=== PATIENT | male | born 1955 | race Caucasian/White ===

== ENCOUNTER 2024-10-08 16:25 | Emergency (ER) | payer MEDICARE, SELFPAY ==
[2024-10-08 16:33] VITALS: BP 150/79
--- NOTE | 2024-10-08 18:04 | ED.GENMED ---
History of Present Illness
General
Chief Complaint: Skin Surface Trauma
Source: patient
Exam Limitations: none
Time Seen by Provider: 10/08/24 17:47
History of Present Illness
History of Present Illness:
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 States his tetanus shot is up-to-date. No other complaints. Minimal bleeding initially. Patient states his wanted him to get it fixed
Past History
Past History
ED Past Medical History: None
Phy Exam
Physical Exam
Physical Exam:
CONSTITUTIONAL Vital signs reviewed, Patient alert and oriented to person, place and time. Well-appearing
HEAD atraumatic, normocephalic.
EYES eyelids normal to inspection, Extraocular muscles intact, Conjunctiva normal, Sclera normal.
NECK normal range of motion, Trachea midline, no jugular venous distention.
RESP no respiratory distress
BACK No obvious deformities
UPPER EXTREMITY Gross Range of motion normal, gross motor strength normal. 2.5 cm laceration to the posterior arm just proximal to the elbow
LOWER EXTREMITY Gross range of motion normal, Gross motor strength normal
NEURO Speech normal, No focal motor deficits include, [place] coma scale 15, Memory normal, Cranial Nerves intact to screening exam.
SKIN Skin warm, dry, and normal in color.
PSYCHIATRIC Patient oriented to person place and time, Normal affect.
Course
Vital Signs
Initial and Last Documented VS:
Initial Vital Signs
Temp Pulse Resp BP Pulse Ox
98.4 F 55 18 150/79 98
10/08/24 16:33 10/08/24 16:33 10/08/24 16:33 10/08/24 16:33 10/08/24 16:33
Last Documented Vital Signs
Temp Pulse Resp BP Pulse Ox
98.4 F 55 18 150/79 98
10/08/24 16:33 10/08/24 16:33 10/08/24 16:33 10/08/24 16:33 10/08/24 16:33
Procedures
Laceration Closure
Left Arm:
Status of Wound: clean
Size of Wound in cm: 2.5
Description of Wound Edges: sharp
Preparation: cleaned with saline
Revision/Debridement: routine- no revision
Wound exploration: extensive cleaning of contaminated wound and explored to base- no FB
Type of Closure: Dermabond-skin glue
Additional information:
Dermabond with mesh used to close the wound. Bulky dressing applied to limit elbow flexion
MDM/Problems Addressed
MDM/Problems Addressed:
Arm laceration
*Pulse Oximetry
Patient hypoxic: no
*Critical Care Note
Total Time (30-74mins, 75-104mins- exclusive of procedures): Not Applicable
Data Reviewed
Source: patient
Prescriptions/Medications Considered But Not Given:
Consider tetanus but last dose 2022
Patient Management
Escalation/DeEscalation of care consider admission/obs:
69-year-old male who presents with laceration. Laceration repaired with Dermabond and mesh. Okay for discharge
ED Attending Note
-
Portions of this chart may have been created with voice recognition software.� Occasional wrong word or��sound alike� substitutions may have occurred due to the inherent limitations of voice recognition software.
Discharge Plan
Departure
Patient Disposition: Home (Routine Discharge)
Date of Disposition: 10/08/24
Time of Disposition: 18:07
Patient with high blood pressure during this ER visit?: Yes
Discharge Problem:
Laceration of left forearm
Instructions: Laceration Repair With Glue (DC), BLOOD PRESSURE
Referrals:
Steffi Wilder MD [Family Provider] -
Activity Restrictions/Additional Instructions:
Return immediate for redness, swelling, drainage or any other concerns
Interventions
Interventions:
*Risk Screen - Suicide Last Done: 10/08/24 16:33
*General Assessment Last Done: 10/08/24 16:33
*Neglect/Abuse Screening Last Done: 10/08/24 16:33
Discharge Date and Time
Print Language: TURKMEN
== END 2024-10-08 18:20 | disposition home or self-care (01) ==
LOC: EMR 16:25
PROVIDERS: EMERGENCY PHYSICIAN Emergency Medicine; FAMILY PHYSICIAN Family Medicine
DX: S51.812A Laceration without foreign body of left forearm, initial encounter (principal); W45.8XXA Other foreign body or object entering through skin, initial encounter
CPT/HCPCS: 99282; 12001

== ENCOUNTER 2024-10-11 19:43 | Emergency (ER) | payer MEDICARE, SELFPAY ==
[2024-10-11 19:45] VITALS: BP 154/84
--- NOTE | 2024-10-11 20:25 | ED.GENMED ---
History of Present Illness
<Alex Beckford MD, Resident - Last Filed: 10/11/24 22:22>
General
Chief Complaint: Wound Check/Suture Removal
Time Seen by Provider: 10/11/24 20:14
History of Present Illness
History of Present Illness:
This is a 69-year-old male who presents to the ED for a re-opened wound laceration. He was here in the ED 3 days ago after a laceration to his left arm. At that time, wound care was done and Dermabond with mesh was used to close the wound.
Dressing was applied at that time. Patient reports today he was in the shower and he pulled the dressing off by mistake. The wound began to bleed prompting him to come to the ED for evaluation. At bedside, bleeding has discontinued. He denies
fever, chills.
Past History
<Alex Beckford MD, Resident - Last Filed: 10/11/24 22:22>
Past History
ED Past Medical History: None
Phy Exam
<Alex Beckford MD, Resident - Last Filed: 10/11/24 22:22>
General Physical Exam
General Presentation: well appearing and no apparent distress
Pulmonary Exam
Pulmonary Exam: no respiratory distress
Skin Exam
Skin Exam: other (2 cm laceration the posterior arm with no erythema, pus, drainage.)
Course
<Alex Beckford MD, Resident - Last Filed: 10/11/24 22:22>
Vital Signs
Initial and Last Documented VS:
Initial Vital Signs
Temp Pulse Resp BP Pulse Ox
98.2 F 52 18 154/84 98
10/11/24 19:45 10/11/24 19:45 10/11/24 19:45 10/11/24 19:45 10/11/24 19:45
Last Documented Vital Signs
Temp Pulse Resp BP Pulse Ox
98.2 F 52 18 154/84 98
10/11/24 19:45 10/11/24 19:45 10/11/24 19:45 10/11/24 19:45 10/11/24 19:45
<Berry Vera MD - Last Filed: 10/11/24 20:51>
Vital Signs
Initial and Last Documented VS:
Initial Vital Signs
Temp Pulse Resp BP Pulse Ox
98.2 F 52 18 154/84 98
10/11/24 19:45 10/11/24 19:45 10/11/24 19:45 10/11/24 19:45 10/11/24 19:45
Last Documented Vital Signs
Temp Pulse Resp BP Pulse Ox
98.2 F 52 18 154/84 98
10/11/24 19:45 10/11/24 19:45 10/11/24 19:45 10/11/24 19:45 10/11/24 19:45
<Alex Beckford MD, Resident - Last Filed: 10/11/24 22:22>
MDM/Problems Addressed
MDM/Problems Addressed:
69-year-old male who presents to the ER due to reopened wound laceration. On inspection of skin, no evidence of infection. No bleeding. On inspection of wound, healing process already started, no bleeding. Will use Steri-Strips and apply dressing.
<Alex Beckford MD, Resident - Last Filed: 10/11/24 22:22>
*Critical Care Note
Total Time (30-74mins, 75-104mins- exclusive of procedures): Not Applicable
ED Attending Note
<Alex Beckford MD, Resident - Last Filed: 10/11/24 22:22>
-
Portions of this chart may have been created with voice recognition software.� Occasional wrong word or��sound alike� substitutions may have occurred due to the inherent limitations of voice recognition software.
<Berry Vera MD - Last Filed: 10/11/24 20:51>
ED Attending Note
Patient seen and examined by attending physician: Yes
I performed the substantive portion of visit, reviewed & personally made and approve the management plan that is documented in note by myself or LIZZ.: Yes
ED Attending Note:
Patient had his glue torn off. Here for reevaluation.
Well-healing relatively well apposition. No drainage no erythema.
Plan would be Steri-Strip. Not appropriate to suture or reglue. Wound care and follow-up
Discharge Plan
Departure
Patient Disposition: Home (Routine Discharge)
Date of Disposition: 10/11/24
Time of Disposition: 20:47
Patient with high blood pressure during this ER visit?: Yes
Discharge Problem:
Encounter for wound care
Instructions: Wound care - ED discharge instructions, Steri-Strips over Glued Wound
Referrals:
Camacho Bailey MD [Family Provider] -
Activity Restrictions/Additional Instructions:
Please return for any worsening symptoms.
You may return at any time if you have further concerns.
Thank you for choosing [facility].
Interventions
Interventions:
*Risk Screen - Suicide Last Done: 10/11/24 19:47
*General Assessment Last Done: 10/11/24 19:47
*Neglect/Abuse Screening Last Done: 10/11/24 19:47
*ED- Fall Risk Assessment Last Done: 10/11/24 19:47
*ED COVID-19 Vaccine History Last Done: 10/11/24 19:47
*Nursing Disposition Last Done: 10/11/24 21:03
ED-Skin Assessment Last Done: 10/11/24 20:56
Discharge Date and Time
Discharge Date/Time: 10/11/24 21:03
Print Language: BULGARIAN
== END 2024-10-11 21:03 | disposition home or self-care (01) ==
LOC: EMR 19:43
PROVIDERS: EMERGENCY PHYSICIAN Emergency Medicine; FAMILY PHYSICIAN Family Medicine
DX: S41.112A Laceration without foreign body of left upper arm, initial encounter (principal); Z51.89 Encounter for other specified aftercare; X58.XXXA Exposure to other specified factors, initial encounter; R03.0 Elevated blood-pressure reading, without diagnosis of hypertension
CPT/HCPCS: 99282

== ENCOUNTER 2025-01-23 12:11 | Emergency (ER) | payer MEDICARE, SELFPAY ==
[2025-01-23 12:22] VITALS: BP 112/69
--- NOTE | 2025-01-23 14:50 | ED.GENMED ---
History of Present Illness
<Amee Trinidad DO, Resident - Last Filed: 01/25/25 02:24>
General
Chief Complaint: Head Injury
Source: patient
Exam Limitations: none
Time Seen by Provider: 01/23/25 14:43
History of Present Illness
History of Present Illness:
Patient is 69-year-old male no pertinent past medical history presenting with injury to the left forehead. Patient was at work on when he hit his left side of his forehead on a rafter. Patient works in construction. Patient denies loss
of consciousness, lightheadedness dizziness, nausea or vomiting. Patient currently denying any pain. Patient states that he came in for concern of the bruising and edema periorbitally. Patient denies all other ROS.
Past History
<Amee Trinidad DO, Resident - Last Filed: 01/25/25 02:24>
Past History
ED Past Medical History: None
Review of Systems
<Amee Trinidad DO, Resident - Last Filed: 01/25/25 02:24>
Review of Systems
Allergies reviewed?: Yes
All Other Systems: ROS reviewed and negative except as documented in HPI and ROS
Constitutional: Reports no symptoms
EENT: Reports no symptoms
Respiratory: Reports no symptoms
Cardiac: Reports no symptoms
ABD/GI: Reports no symptoms
: Reports no symptoms
Musculoskeletal: Reports no symptoms
Skin: Reports no symptoms
Neurological: Reports no symptoms
Endocrine: Reports no symptoms
Hematologic/Lymphatic: Reports bruising (Periorbital bruising and edema associated with traumatic injury)
Psychiatric: Reports no symptoms
Phy Exam
<Amee Trinidad DO, Resident - Last Filed: 01/25/25 02:24>
General Physical Exam
General Presentation: well appearing and no apparent distress
General age: appears stated age
General Skin: warm and dry
General Habitus: normal
General Mental: alert
Eye Exam
Eye Exam: PERRL, EOMI, conjunctiva normal and visual manning normal
Cardiovascular Exam
Cardiovascular Exam: regular rate/rhythm
Heart Sounds: normal
Pulmonary Exam
Pulmonary Exam: lungs clear and no respiratory distress
Gastrointestinal Exam
Gastrointestinal Exam: normal bowel sounds, non tender and soft
Neurological Exam
Neurological Exam: alert, oriented x3, no motor deficits, normal reflexs and speech normal
Musculoskeletal Exam
Musculoskeletal Exam: full ROM
Skin Exam
Skin Exam: normal color and warm/dry
Psychiatric Exam
Psychiatric Exam: normal mood/affect
Course
<Amee Trinidad DO, Resident - Last Filed: 01/25/25 02:24>
Orders/Labs/Results
Orders:
Orders
01/23/25 12:25
CT Head W/o Iv Contrast Urgent
Comment:
Reason For Exam: head injury
Vital Signs
Initial and Last Documented VS:
Initial Vital Signs
Temp Pulse Resp BP Pulse Ox
98 F 54 16 112/69 98
01/23/25 12:22 01/23/25 12:22 01/23/25 12:22 01/23/25 12:22 01/23/25 12:22
Last Documented Vital Signs
Temp Pulse Resp BP Pulse Ox
98 F 58 18 153/74 99
01/23/25 12:22 01/23/25 17:32 01/23/25 17:32 01/23/25 17:32 01/23/25 17:32
<Juan Daniel Mata DO - Last Filed: 01/23/25 21:56>
Orders/Labs/Results
Orders:
Orders
01/23/25 12:25
CT Head W/o Iv Contrast Urgent
Comment:
Reason For Exam: head injury
Vital Signs
Initial and Last Documented VS:
Initial Vital Signs
Temp Pulse Resp BP Pulse Ox
98 F 54 16 112/69 98
01/23/25 12:22 01/23/25 12:22 01/23/25 12:22 01/23/25 12:22 01/23/25 12:22
Last Documented Vital Signs
Temp Pulse Resp BP Pulse Ox
98 F 58 18 153/74 99
01/23/25 12:22 01/23/25 17:32 01/23/25 17:32 01/23/25 17:32 01/23/25 17:32
<Amee Trinidad DO, Resident - Last Filed: 01/25/25 02:24>
MDM/Problems Addressed
Differential Diagnosis Includes:
Periorbital bruising and edema associated with traumatic injury of the left forehead
MDM/Problems Addressed:
Patient got CT head.
Will discharge patient home.
<Amee Trinidad DO, Resident - Last Filed: 01/25/25 02:24>
*Radiology
Radiology exam reviewed: radiology read reviewed
*Pulse Oximetry
SaO2: 98
Oxygen Mode of Delivery: Room air
Patient hypoxic: no
*Critical Care Note
Total Time (30-74mins, 75-104mins- exclusive of procedures): Not Applicable
ED Attending Note
<Amee Trinidad DO, Resident - Last Filed: 01/25/25 02:24>
-
Portions of this chart may have been created with voice recognition software.� Occasional wrong word or��sound alike� substitutions may have occurred due to the inherent limitations of voice recognition software.
<Juan Daniel Mata DO - Last Filed: 01/23/25 21:56>
ED Attending Note
Patient seen and examined by attending physician: Yes
I performed a history and physical exam of patient and discussed management with resident, I reviewed resident's note and agree with documented findings and plan of care.: Yes
ED Attending Note:
I agree with Dr. Trinidad's note
Patient struck his head a couple days ago. No loss of consciousness. No complaints other than bruising to his left periorbital area. CT ordered in triage.
General: Awake, Alert, Oriented X3. No acute distress.
Vitals: unremarkable
Head: Abrasion forehead, mild ecchymosis left infraorbital region. No step-off
Eyes: Pupils equal, EOMI
Throat: Airway intact, no exudates
Neuro: Nonfocal
Skin: Warm, dry, no rash
CT appears to show no acute abnormalities to my eye. Will await CT report from radiology. If negative stable for discharge home
Discharge Plan
Departure
Patient Disposition: Home (Routine Discharge)
Date of Disposition: 01/23/25
Time of Disposition: 17:04
Patient with high blood pressure during this ER visit?: No
Discharge Problem:
Head injury
Instructions: Head Injury in Adults (DC)
Referrals:
UNKNOWN - PT DOES,NOT KNOW [Family Provider]
Interventions
Interventions:
*Risk Screen - Suicide Last Done: 01/23/25 12:22
*General Assessment Last Done: 01/23/25 15:16
*Neglect/Abuse Screening Last Done: 01/23/25 12:22
*ED COVID-19 Vaccine History Last Done: 01/23/25 15:16
*Nursing Disposition Last Done: 01/23/25 17:33
ED- Neurological Assessment Last Done: 01/23/25 15:16
ED-Skin Assessment Last Done: 01/23/25 15:16
Discharge Date and Time
Discharge Date/Time: 01/23/25 17:34
Print Language: [place]
[2025-01-23 15:31] VITALS: BP 146/63
[2025-01-23 17:32] VITALS: BP 153/74
== END 2025-01-23 17:34 | disposition home or self-care (01) ==
LOC: EMR 12:11
PROVIDERS: EMERGENCY PHYSICIAN Emergency Medicine
DX: S09.90XA Unspecified injury of head, initial encounter (principal); S00.12XA Contusion of left eyelid and periocular area, initial encounter; W22.09XA Striking against other stationary object, initial encounter; Y99.0 Civilian activity done for income or pay
CPT/HCPCS: 99284; 70450